=== PATIENT | male | born 1980 | race Caucasian/White ===

== ENCOUNTER 2018-06-13 09:21 | Outpatient (CLI) | payer SELFPAY ==
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
== END 2018-06-13 09:22 ==
LOC: RAD 09:21
PROVIDERS: ATTEND Family Medicine
DX: M54.2 Cervicalgia (principal)
CPT/HCPCS: 72040